=== PATIENT | female | born 1945 | race Caucasian/White ===

== ENCOUNTER 2020-09-15 08:22 | Emergency (ER) | payer MEDICARE, BC ==
[2020-09-15] MEDS ORDERED: Ondansetron 4 MG/2 ML SDV IVPUSH ONE (09:01)
[2020-09-15] MEDS ORDERED: HYDROmorphone 0.5 MG/0.5 ML Syringe IVPUSH ONE ×2 (09:01→11:01)
--- NOTE | 2020-09-15 09:04 | EDM.PDOC ---
ED HPI GENERAL MEDICAL PROBLEM - General Chief Complaint: Back Pain or Injury Stated Complaint: LOW BACK AND LOW ABD PAIN ON RT SIDE Time Seen by Provider: 09/15/20 08:55 Source of Information: Reports: Patient History Limitations: Reports: No Limitations, Other (Initial vitals in the emergency department: Temp 96.6, pulse 64, respiratory rate 18, pulse ox 100% on room air.) - History of Present Illness INITIAL COMMENTS - FREE TEXT/NARRATIVE: 75-year-old female presents to the emergency department with complaints of right lower back pain/right lower quadrant abdominal pain that started this morning, just prior to arrival. Patient she states she woke up to go to the bathroom and had immediate sharp stabbing pain to her right lower back and right abdomen. Patient states the pain was so severe that it made her nauseated and she vomited and then began to dry heave. Patient states she only voided a small amount and then had stress incontinence with the dry heaving. Onset: Today, Sudden Right Back Pain Score (Numeric/FACES): 10 - Related Data Allergies Allergy/AdvReac Type Severity Reaction Status Date / Time No Known Allergies Allergy Verified 09/15/20 08:42 Home Meds: Home Meds Hydrocodone/Acetaminophen [Hydrocodone-Acetamin 5-325 mg] 1 each PO Q4H PRN #10 tablet 09/15/20 [Rx] Losartan/Hydrochlorothiazide [Losartan-HCTZ 100-25 MG] 25 - 100 mg PO DAILY 09/15/20 [History] Metoprolol Succinate [Toprol Xl] 100 mg PO DAILY 09/15/20 [History] Ondansetron [Zofran ODT] 4 mg PO Q6H PRN #20 tab.dis 09/15/20 [Rx] Pravastatin Sodium 20 mg PO DAILY 09/15/20 [History] amLODIPine Besylate [Amlodipine Besylate] 10 mg PO DAILY 09/15/20 [History] Past Medical History HEENT History: Reports: Impaired Vision Other HEENT History: wears eyeglasses. 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 Hematologic History: Reports: Anemia Oncologic (Cancer) History: Reports: Colon Other Oncologic History: surgery - Infectious Disease History Infectious Disease History: Reports: Chicken Pox, Measles - Past Surgical History GI Surgical History: Reports: Colon, Colonoscopy, Other (See Below) Other GI Surgeries/Procedures: removed 2 ft of colon. Social & Family History - Tobacco Use Tobacco Use Status *Q: Never Tobacco User Second Hand Smoke Exposure: No - Caffeine Use Caffeine Use: Reports: Coffee - Recreational Drug Use Recreational Drug Use: No ED ROS GENERAL - Review of Systems Review Of Systems: See Below Constitutional: Reports: No Symptoms. Denies: Fever, Chills HEENT: Reports: No Symptoms Respiratory: Reports: No Symptoms Cardiovascular: Reports: No Symptoms Endocrine: Reports: No Symptoms GI/Abdominal: Reports: Abdominal Pain (Right lower quadrant), Nausea, Vomiting. Denies: Constipation, Diarrhea : Reports: Flank Pain (Right side), Incontinence Musculoskeletal: Reports: Back Pain (Right lower) Skin: Reports: No Symptoms Neurological: Reports: No Symptoms Psychiatric: Reports: No Symptoms Hematologic/Lymphatic: Reports: No Symptoms Immunologic: Reports: No Symptoms ED EXAM, GI/ABD - Physical Exam Exam: See Below Exam Limited By: No Limitations General Appearance: Alert, WD/WN, No Apparent Distress, Mild Distress Ears: Normal External Exam, Hearing Grossly Normal Nose: Normal Inspection Throat/Mouth: Normal Lips, Normal Voice, No Airway Compromise Head: Atraumatic, Normocephalic Neck: Normal Inspection, Supple, Non-Tender, Full Range of Motion Respiratory/Chest: No Respiratory Distress, Lungs Clear, Normal Breath Sounds, Chest Non-Tender Cardiovascular: Normal Peripheral Pulses, Regular Rate, Rhythm, No Edema, No Murmur GI/Abdominal Exam: Normal Bowel Sounds, Soft, No Distention, Rebound, Tender (Right lower quadrant). No: Non-Tender (Female) Exam: Deferred Rectal (Female) Exam: Deferred Back Exam: Normal Inspection, Full Range of Motion, CVA Tenderness (R) Extremities: Normal Inspection, Normal Range of Motion, Non-Tender, No Pedal Edema, Normal Capillary Refill Neurological: Alert, Oriented, Normal Cognition Psychiatric: Normal Affect, Normal Mood Skin Exam: Warm, Dry, Intact, Normal Color, No Rash Lymphatic: No Adenopathy Course - Vital Signs Text/Narrative:: 75-year-old female presents the emergency department with complaints of right lower quadrant abdominal pain and right lower sided back pain that started just this morning prior to arrival. Patient states she woke with severe right lower back and right lower quadrant pain that made her nauseated and vomit x1. Patient states she then did void but it was a very small amount and subsequently after the fact had incontinence when dry heaving. Patient states she did have a history of right lower quadrant pain x1 several years back but that resolved on its own. Also states her only abdominal surgeries was for a bowel resection due to colon cancer over 5 years ago. Right lower quadrant is tender with palpation at the right lower quadrant. When abdomen is palpated on the left she has referred tenderness to the right. Patient also does have CVA tenderness on the right. Denies fever or chills. I have ordered a CBC, CMP, magnesium, CRP, UA with micro, and a CT of the abdomen and pelvis without contrast. I have also ordered for the patient to receive Dilaudid half milligram IV x1 dose now and Zofran 4 mg IV x1 dose now. Last Recorded V/S: Last Vital Signs Temp 96.6 F L 09/15/20 08:30 Pulse 64 09/15/20 08:30 Resp 18 09/15/20 08:30 BP Pulse Ox 100 09/15/20 08:30 - Orders/Labs/Meds Orders: Active Orders 24 hr Category Date Time Status Sodium Chloride 0.9% [Saline Flush] Med 09/15/20 09:01 Active 10 ml FLUSH ASDIRECTED PRN Saline Lock Insert [OM.PC] Stat Oth 09/15/20 09:01 Ordered Medication Orders Sodium Chloride (Saline Flush) 10 ml FLUSH ASDIRECTED PRN PRN Reason: Keep Vein Open Last Admin: 09/15/20 13:28 Dose: 10 ml Documented by: Admin: 09/15/20 09:12 Dose: 10 ml Documented by: ODILIA Labs: Laboratory Tests 09/15/20 09/15/20 09/15/20 Range/Units 08:43 08:43 08:43 WBC 6.65 (3.98-10.04) K/mm3 RBC 5.20 (3.98-5.22) M/mm3 Hgb 15.0 (11.2-15.7) gm/dl Hct 43.7 (34.1-44.9) % MCV 84.0 (79.4-94.8) fl MCH 28.8 (25.6-32.2) pg MCHC 34.3 (32.2-35.5) g/dl RDW Std Deviation 40.5 (36.4-46.3) fL Plt Count 148 L (182-369) K/mm3 MPV 12.1 (9.4-12.3) fl Neut % (Auto) 75.0 H (34.0-71.1) % Lymph % (Auto) 16.7 L (19.3-51.7) % [place] % (Auto) 5.9 (4.7-12.5) % Eos % (Auto) 1.4 (0.7-5.8) Baso % (Auto) 0.2 (0.1-1.2) % Neut # (Auto) 5.00 (1.56-6.13) K/mm3 Lymph # (Auto) 1.11 L (1.18-3.74) K/mm3 [place] # (Auto) 0.39 H (0.24-0.36) K/mm3 Eos # (Auto) 0.09 (0.04-0.36) K/mm3 Baso # (Auto) 0.01 (0.01-0.08) K/mm3 Sodium 137 (136-145) mEq/L Potassium 3.6 (3.5-5.1) mEq/L Chloride 101 (98-107) mEq/L Carbon Dioxide 25 (21-32) mEq/L Anion Gap 14.6 (5-15) BUN 13 (7-18) mg/dL Creatinine 0.8 (0.55-1.02) mg/dL Est Cr Clr Drug Dosing 57.75 mL/min Estimated GFR (MDRD) > 60 (>60) mL/min BUN/Creatinine Ratio 16.3 (14-18) Glucose 203 H (83-115) mg/dL Uric Acid 4.5 (2.6-6.0) mg/dL Calcium 9.4 (8.5-10.1) mg/dL Magnesium 1.9 (1.8-2.4) mg/dl Total Bilirubin 0.8 (0.2-1.0) mg/dL AST 33 (15-37) U/L ALT 66 H (14-59) U/L Alkaline Phosphatase 69 (46-116) U/L C-Reactive Protein 0.4 (<1.0) mg/dL Total Protein 8.0 (6.4-8.2) g/dl Albumin 4.1 (3.4-5.0) g/dl Globulin 3.9 gm/dL Albumin/Globulin Ratio 1.1 (1-2) Lipase 114 (73-393) U/L Urine Color (Yellow) Urine Appearance (Clear) Urine pH (5.0-8.0) Ur Specific [place] (1.005-1.030) Urine Protein (Negative) Urine Glucose (UA) (Negative) Urine Ketones (Negative) Urine Occult Blood (Negative) Urine Nitrite (Negative) Urine Bilirubin (Negative) Urine Urobilinogen (0.2-1.0) Ur Leukocyte Esterase (Negative) 09/15/20 Range/Units 09:28 WBC (3.98-10.04) K/mm3 RBC (3.98-5.22) M/mm3 Hgb (11.2-15.7) gm/dl Hct (34.1-44.9) % MCV (79.4-94.8) fl MCH (25.6-32.2) pg MCHC (32.2-35.5) g/dl RDW Std Deviation (36.4-46.3) fL Plt Count (182-369) K/mm3 MPV (9.4-12.3) fl Neut % (Auto) (34.0-71.1) % Lymph % (Auto) (19.3-51.7) % [place] % (Auto) (4.7-12.5) % Eos % (Auto) (0.7-5.8) Baso % (Auto) (0.1-1.2) % Neut # (Auto) (1.56-6.13) K/mm3 Lymph # (Auto) (1.18-3.74) K/mm3 [place] # (Auto) (0.24-0.36) K/mm3 Eos # (Auto) (0.04-0.36) K/mm3 Baso # (Auto) (0.01-0.08) K/mm3 Sodium (136-145) mEq/L Potassium (3.5-5.1) mEq/L Chloride (98-107) mEq/L Carbon Dioxide (21-32) mEq/L Anion Gap (5-15) BUN (7-18) mg/dL Creatinine (0.55-1.02) mg/dL Est Cr Clr Drug Dosing mL/min Estimated GFR (MDRD) (>60) mL/min BUN/Creatinine Ratio (14-18) Glucose (83-115) mg/dL Uric Acid (2.6-6.0) mg/dL Calcium (8.5-10.1) mg/dL Magnesium (1.8-2.4) mg/dl Total Bilirubin (0.2-1.0) mg/dL AST (15-37) U/L ALT (14-59) U/L Alkaline Phosphatase (46-116) U/L C-Reactive Protein (<1.0) mg/dL Total Protein (6.4-8.2) g/dl Albumin (3.4-5.0) g/dl Globulin gm/dL Albumin/Globulin Ratio (1-2) Lipase (73-393) U/L Urine Color Light yellow (Yellow) Urine Appearance Clear (Clear) Urine pH 7.5 (5.0-8.0) Ur Specific [place] 1.020 (1.005-1.030) Urine Protein Negative (Negative) Urine Glucose (UA) Negative (Negative) Urine Ketones Trace H (Negative) Urine Occult Blood Negative (Negative) Urine Nitrite Negative (Negative) Urine Bilirubin Negative (Negative) Urine Urobilinogen 0.2 (0.2-1.0) Ur Leukocyte Esterase Negative (Negative) Meds: Medications Generic Name Dose Route Start Last Admin Trade Name Frekeely PRN Reason Stop Dose Admin Sodium Chloride 10 ml 09/15/20 09:01 09/15/20 13:28 Saline Flush FLUSH 10 ml ASDIRECTED PRN Administration Keep Vein Open Discontinued Medications Generic Name Dose Route Start Last Admin Trade Name Freq PRN Reason Stop Dose Admin Hydromorphone HCl 0.5 mg 09/15/20 09:01 09/15/20 09:10 Dilaudid IVPUSH 09/15/20 09:02 0.5 mg ONETIME ONE Administration Hydromorphone HCl 0.5 mg 09/15/20 11:01 09/15/20 11:13 Dilaudid IVPUSH 09/15/20 11:02 0.5 mg ONETIME ONE Administration Sodium Chloride 1,000 mls @ 999 mls/hr 09/15/20 10:00 09/15/20 10:12 Normal Saline IV 09/15/20 11:00 999 mls/hr ONETIME ONE Administration Iopamidol 25 ml 09/15/20 12:31 09/15/20 13:28 Isovue-300 (61%) IVPUSH 09/15/20 12:32 50 ml ONETIME ONE Administration Iopamidol 100 ml 09/15/20 12:31 09/15/20 13:28 Isovue-300 (61%) IVPUSH 09/15/20 12:32 100 ml ONETIME ONE Administration Ketorolac Tromethamine 30 mg 09/15/20 12:07 09/15/20 12:32 Toradol IVPUSH 09/15/20 12:08 30 mg ONETIME ONE Administration Metoclopramide HCl 5 mg 09/15/20 11:09 09/15/20 11:12 Reglan IVPUSH 09/15/20 11:10 5 mg ONETIME ONE Administration Ondansetron HCl 4 mg 09/15/20 09:01 09/15/20 09:08 Zofran IVPUSH 09/15/20 09:02 4 mg ONETIME ONE Administration Sodium Chloride 10 ml 09/15/20 12:31 Saline Flush FLUSH 09/15/20 12:32 ONETIME ONE - Re-Assessments/Exams Free Text/Narrative Re-Assessment/Exam: 09/15/20 10:18 CBC is unremarkable other than neutrophil percentage of 75.0, CMP shows an elevated glucose of 203, ALT 66, C-reactive protein 0.4, urinalysis is unremarkable other than urine ketones trace, urine nitrite negative urine leuk esterase negative, and there is no occult blood noted in the urine. CT of the abdomen and pelvis impression: 1 inflammatory change which appears contiguous within the lower duodenum. Findings most likely represent duodenitis. 2. Inflammatory change such as a small portion of the right kidney. 3. Other nonacute findings as noted above. The inflammatory change noted in the duodenum abuts a small portion of the right kidney. Reassessment of the patient is completely unremarkable. Patient states she no longer has any pain or nausea. Patient also reports that when she was up to give urine sample she was able to void a very large amount of urine. This has me questioning if patient did not possibly pass a uric acid stone. I have ordered a uric acid level to rule out passing of uric acid stone and also a lipase level to rule out pancreatitis. 09/15/20 10:21 I also ordered the patient to receive 1 L normal saline. 09/15/20 10:58 Uric acid levels 4.5, lipase 114. These are both within normal limits. Patient states she feels much better now and denies any complaints. So we will let her go home and follow-up with Dr. Casper within a week should she have any further problems. 09/15/20 11:10 Patient did have another episode of colicky type pain right lower back radiating around to right groin. Pain is so intense that it again is making her nauseated and dry heaves. Patient was given another 0.5 mg of Dilaudid IV and Reglan 5 mg IV. 09/15/20 12:08 States she still having a significant amount of right flank pain despite being medicated with Dilaudid. I have ordered the patient to receive Toradol 30 mg IV x1 dose. 09/15/20 12:25 Patient states that the right flank low back pain is the worst it has been. I consulted with Dr. Casey regarding this, and he agrees that the patient should have a CT of the abdomen and pelvis with IV contrast. 09/15/20 14:01 CT of the abdomen and the pelvis with IV contrast impression per Dr. Coronado: 1. Slight wall thickening within the duodenum with inflammatory change presumably due to duodenitis. 2. Uterine fibroid. 3. Other nonacute findings as noted above. The patient will be discharged to home. Patient will be sent home with a strainer to strain all urine. Patient will need to follow-up with Dr. Sharpe in the next 3 to 4 days if she continues to have abdominal discomfort. Patient will also be sent home with recommendations to take MiraLAX 17 g daily. Departure - Departure Time of Disposition: 10:58 Disposition: Home, Self-Care 01 Condition: Good Clinical Impression: Abdominal pain Qualifiers: Abdominal location: right lower quadrant Qualified Code(s): R10.31 - Right lower quadrant pain - Discharge Information Prescriptions: Hydrocodone/Acetaminophen [Hydrocodone-Acetamin 5-325 mg] 1 each PO Q4H PRN #10 tablet PRN Reason: Pain (Severe 7-10) Ondansetron [Zofran ODT] 4 mg PO Q6H PRN #20 tab.dis PRN Reason: Nausea/Vomiting Instructions: Abdominal Pain, Adult, [id number] Referrals: Rose Hicks MD [Primary Care Provider] - Forms: ED Department Discharge Additional Instructions: You are seen in the emergency department with complaints of right lower quadrant and right lower back pain that started this morning, just prior to arrival in the emergency department. You reported that the pain came on suddenly and was so severe that it caused you to vomit. A CT scan was initially performed without contrast which did not show any significant reason for the abdominal pain. You were then given a CT scan with IV contrast. Which showed a uterine fibroid. This could be the cause of your abdominal pain however we could not rule out a uric acid stone passed from your kidneys. You will be sent home with a strainer to strain all urine over the next 3 to 4 days. A prescription for pain medication and nausea medication has been sent to your pharmacy. Hydrocodone can be taken 1-2 tabs every 6 hours as needed for severe pain. You can try ibuprofen 600 mg for lesser pain. This can be taken every 6-8 hours. You also be sent with a prescription for Zofran, which is for nausea, which can be taken every 6 hours as needed. This is a dissolvable tablet and it can be placed under your tongue when you feel nauseated. Also recommend that you start taking MiraLAX 1 scoop daily as you did not have a fair amount of stool within your bowels. Please follow-up with Dr. Casper within the next 3 to 4 days pat uld you continue to have issues with abdominal pain. Should you develop fever, chills or have nausea and vomiting that is not resolved with nausea medication then do not hesitate to return to the emergency department. Sepsis Event Note (ED) - Evaluation Sepsis Screening Result: No Definite Risk - Focused Exam Vital Signs: Vital Signs Temp Pulse Resp Pulse Ox 09/15/20 08:30 96.6 F L 64 18 100 - My Orders Last 24 Hours: My Active Orders 09/15/20 09:01 Sodium Chloride 0.9% [Saline Flush] 10 ml FLUSH ASDIRECTED PRN Saline Lock Insert [OM.PC] Stat - Assessment/Plan Last 24 Hours: My Active Orders 09/15/20 09:01 Sodium Chloride 0.9% [Saline Flush] 10 ml FLUSH ASDIRECTED PRN Saline Lock Insert [OM.PC] Stat
[2020-09-15] MEDS: Sodium Chloride 0.9% 10 ML Syringe FLUSH PRN ×2 (09:12→13:28)
[2020-09-15] MEDS ORDERED: Sodium Chloride 0.9% 1,000 ML IV ONE (10:00)
--- NOTE | 2020-09-15 10:04 | CT ---
CT abdomen and pelvis Technique: Multiple axial sections were obtained from above the dome of the diaphragm inferiorly through the pubic symphysis. Intravenous and oral contrast not utilized. Findings: Inflammatory change is seen which appears connected to the duodenum inferiorly. This is most likely due to a duodenitis. This inflammatory change abuts a small portion of the right kidney. Visualized lung bases show nothing acute. Diffuse fatty infiltration is seen within the liver. Liver is also generous in size. Gallbladder contains no calcified gallstones. Small calcification is noted within the spleen which is believed to be incidental. Spleen size is normal. Adrenal glands show no nodule. Kidneys shows no hydronephrosis or ureteral calculi. Aorta shows atherosclerotic change with no aneurysm. No retroperitoneal adenopathy or mesenteric abnormalities are seen. There is a small fat-containing anterior abdominal wall hernia within the upper pelvis. Several surgical clips are seen within the pelvis. No pelvic mass or adenopathy is seen. Appendix is seen which appears normal in size. Bone window settings show mild degenerative change within the spine. Impression: 1. Inflammatory change which appears contiguous within the lower duodenum. Findings most likely represent a duodenitis. 2. Inflammatory change touches a small portion of the right kidney. 3. Other nonacute findings as noted above. Diagnostic code #3
[2020-09-15] MEDS ORDERED: Metoclopramide 10 MG/2 ML SDV IVPUSH ONE (11:09)
[2020-09-15] MEDS ORDERED: Ketorolac 30 MG/ML SDV IVPUSH ONE (12:07)
[2020-09-15] MEDS ORDERED: Sodium Chloride 0.9% 10 ML Syringe FLUSH ONE (12:31)
[2020-09-15] MEDS ORDERED: Iopamidol 612 MG/ML 100 ML Bottle IVPUSH ONE (12:31)
[2020-09-15] MEDS ORDERED: Iopamidol 612 MG/ML 50 ML SDV IVPUSH ONE (12:31)
--- NOTE | 2020-09-15 13:47 | CT ---
CT abdomen and pelvis Technique: Multiple axial sections were obtained from above the dome of the diaphragm inferiorly through the pubic symphysis. Intravenous and oral contrast was utilized. Findings: Inflammatory change is again noted off the inferior duodenum. There appears to be some wall thickening within this portion of duodenum suggesting possible inflammatory change. Visualized lung bases show nothing acute. Diffuse fatty infiltration is seen within the liver. Spleen is normal. Adrenal glands are unremarkable. Pancreas shows no discrete abnormality. Gallbladder contains no calcified gallstones. Kidneys show symmetric contrast enhancement. Delayed images show contrast within both distal ureters and within the bladder. There is a uterine fibroid being seen which measures approximately 4.6 cm. Scattered surgical clips are noted within the abdomen. Appendix is seen which is normal. No additional pelvic abnormality is appreciated. Aorta shows atherosclerotic change without aneurysm. No retroperitoneal adenopathy or mesenteric abnormalities are seen. Small fat-containing anterior abdominal wall hernias are again noted. Impression: 1. Slight wall thickening within the duodenum with inflammatory change presumably due to duodenitis. 2. Uterine fibroid. 3. Other nonacute findings as noted above. Diagnostic code #3
== END 2020-09-15 14:24 | disposition home or self-care (01) ==
LOC: JD.ED 08:22
DX: R10.31 Right lower quadrant pain (principal); M54.5 Low back pain; R11.2 Nausea with vomiting, unspecified; E78.00 Pure hypercholesterolemia, unspecified; I10 Essential (primary) hypertension; J45.909 Unspecified asthma, uncomplicated; Z79.899 Other long term (current) drug therapy
CPT/HCPCS: 36415; 74176; 74177; 80053; 81003; 83690; 83735; 84550; 85025; 86140; 96374; 96375; 99284; J1170; J1885; J2405; J2765; J7030; Q9967